=== PATIENT | female | born 1975 | race African-American/Black ===

== ENCOUNTER 2016-09-18 08:56 | Inpatient (IN) | payer OTHER ==
[2016-09-16 13:54] VITALS: BMI 27.9
[2016-09-18] MEDS ORDERED: ROPIVACAINE HCL 0.5% 30ML VIAL ONE (09:30)
[2016-09-18] MEDS ORDERED: MIDAZOLAM HCL 2 MG/2 ML SINGLE DOSE VIAL ONE (09:30)
[2016-09-18] MEDS ORDERED: DEXAMETHASONE SOD PHOSPHATE/PF 10 MG/ML SDV ONE (09:42)
[2016-09-18] MEDS ORDERED: METHYLENE BLUE 1% 10 MG/1 ML VIAL ONE (10:04)
[2016-09-18] MEDS ORDERED: LIDOCAINE HCL/PF 2% SDV 5ML VIAL ONE (10:43)
[2016-09-18] MEDS ORDERED: PROPOFOL 20 ML ONE (10:44)
[2016-09-18] MEDS ORDERED: HEPARIN NA (PORCINE) 5,000 UNITS/ML 1ML VIAL ONE (10:46)
[2016-09-18] MEDS ORDERED: ROCURONIUM BROMIDE 50 MG/5 ML VIAL ONE (10:47)
[2016-09-18] MEDS ORDERED: ONDANSETRON 4 MG/2 ML VIAL ONE (10:59)
[2016-09-18] MEDS ORDERED: ceFAZolin SODIUM 1 GM VIAL ONE (10:59)
[2016-09-18] MEDS ORDERED: DEXAMETHASONE SOD PHOSPHATE 4 MG/1 ML VIAL ONE (10:59)
[2016-09-18] MEDS ORDERED: VASOPRESSIN 20 UNITS/ML VIAL IV ONE (11:07)
[2016-09-18] MEDS ORDERED: HYDROmorphone *PCA* 10MG/50ML DISP.SYRIN PCA ONE (11:29)
[2016-09-18] MEDS ORDERED: HYDROmorphone HCL/PF 1 MG/ML VIAL (FOR PYXIS CHARGING ONLY) ONE (12:14)
[2016-09-18] MEDS ORDERED: NEOSTIGMINE METHYLSULFATE 0.5 MG/ML - 10 ML MDV ONE (13:47)
[2016-09-18] MEDS ORDERED: GUM MASTIC/STORAX/MSAL/ALCOHOL 1 DRP DROPSBTL MC ONE (14:01)
[2016-09-18] MEDS ORDERED: ONDANSETRON 4 MG/2 ML VIAL IVPUSH PRN ×3 (14:25→15:14)
[2016-09-18] MEDS ORDERED: LACTATED RINGERS SOLUTION 1,000 ML IV SCH ×2 (14:30→15:00)
[2016-09-18] MEDS: HYDROmorphone *PCA* 10MG/50ML DISP.SYRIN PCA SCH ×3 (15:05→17:24)
--- NOTE | 2016-09-18 15:19 | OP ---
DATE OF OPERATION: 09/18/2016 PREOPERATIVE DIAGNOSIS: Fibroid uterus. POSTOPERATIVE DIAGNOSIS: Fibroid uterus. SURGEON: Nestor Leal MD ROUND CUTTER OPERATOR: Siva, resident Dr. Pascal ANESTHESIA: General. COMPLICATIONS: None. FINDINGS: A [id number] bulky anteverted uterus with multiple fibroids palpable. Upon myomectomy, we were able to remove 9 fibroids ranging in size from 1 cm to 8 cm. BLOOD LOSS: 100 mL. COMPLICATIONS: None. DESCRIPTION OF PROCEDURE: The patient was taken to the operating room where general anesthesia was found to be adequate. She was placed in the dorsal lithotomy position, prepped and draped in normal sterile fashion. A Perez was inserted to drain her bladder. A pelvic exam revealed the above findings. A speculum was placed and a pediatric Perez was inserted into the uterine cavity, insufflated, and the uterine cavity was filled with methylene blue dye and then the Perez was clamped. Attention was then turned to the abdomen where a Pfannenstiel incision was made and carried down to the fascia. The fascia was incised in the midline and extended laterally on both sides. The muscle was then dissected off the fascia both inferiorly and superiorly. The muscle was in the midline and underlying peritoneum was tented up and entered. The peritoneal was extended superiorly and inferiorly. The uterus was free of adhesions. The bowel was packed away and the uterus was exteriorized. An incision was made anteriorly on the uterus in a vertical fashion until reaching the first fibroid, which was the largest of all removed. This was done using a Bovie. A sweetheart was used to grab the fibroid, and the Bovie was used to carefully dissect around the perimeter of the fibroid until we were able to remove it in its entirety. This process was repeated for the remaining 8 fibroids. Overall, there were 2 serosal incisions, 1 anterior and 1 anteroposterior, in order to remove the fibroids. Prior to the incision on the uterus, a tourniquet was placed in order to decrease the amount of bleeding and released 1 hour into the procedure for 1 full minute before reclamping. After removal of all the fibroids, the uterine incisions were closed deep to superficial using multiple 0 Vicryl [id number] sutures. The endometrial cavity was not entered during this procedure. A final layer of 2-0 Vicryl in a running locked fashion was used on the myometrium, after which 4-0 Vicryl was used to close the serosa in a baseball fashion. The uterus was then placed back into the abdomen after removing the tourniquet completely. There was excellent hemostasis noted. Interceed was placed atop both anterior and posterior incisions on the uterus to prevent future adhesions. The muscle was then closed in a single interrupted fashion using 2-0 Vicryl. The fascia was closed with 0 Vicryl in a running fashion, and the skin was closed with 4-0 Vicryl in a subcuticular fashion. All sponge, lap, and instrument counts were correct x2, and the patient was taken to recovery room in stable condition. Siva dictating for MD NESTOR Lamas M.D. [id number]
[2016-09-18] MEDS ORDERED: HYDROmorphone HCL CARPU-JECT 1 MG/1 ML DISP.SYRIN IVPUSH PRN (16:00)
[2016-09-18] MEDS: KETOROLAC TROMETHAMINE 15 MG/ML VIAL IVPUSH SCH (20:40)
[2016-09-19] MEDS: KETOROLAC TROMETHAMINE 15 MG/ML VIAL IVPUSH SCH ×2 (02:00→08:58)
[2016-09-19] MEDS ORDERED: LACTATED RINGERS SOLUTION 1,000 ML IV SCH (09:15)
--- NOTE | 2016-09-19 09:19 | PN ---
Progress Note (short form) - Note Progress Note: ANESTHESIOLOGY POST-OP CHECK 41F s/p abdominal myomectomy under general anesthesia, POD #1. No acute complaints, tolerating PO, ambulating, voiding. Denies N/V. Pain 7/10 and tolerable. Vital Signs Temperature 99.6 F 09/19/16 05:32 Pulse Rate 86 09/19/16 05:32 Respiratory Rate 18 09/19/16 05:32 Blood Pressure 114/58 09/19/16 05:32 O2 Sat by Pulse Oximetry (%) 99 09/19/16 05:32 Active Medications Lactated Ringer's (Lactated Ringers Solution) 1,000 mls @ 75 mls/hr IV ASDIR MARTIN Ibuprofen (Motrin -) 600 mg PO Q6H MARTIN Ketorolac Tromethamine (Toradol Injection -) 15 mg IVPUSH Q6H [facility] Stop: 09/19/16 09:30 Last Admin: 09/19/16 08:58 Dose: 15 mg Oxycodone/Acetaminophen (Percocet 5/325 -) 2 combo PO Q4H PRN PRN Reason: PAIN LEVEL 6-10 Stop: 09/24/16 09:06 Gen: Awake, alert No apparent anesthesia complications. Pain controlled. 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 Continue management as per primary team.
[2016-09-19 11:02] LABS: BASOPHIL 0.1 % (0-2.0); EOSINOPHIL 0.2 % (0-4.5); MCH 29.4 pg (25.7-33.7); MCHC 33.5 g/dl (32.0-36.0); MEAN CELL VOLUME 87.7 fl (80-96); MEAN PLT VOLUME 11.3 fl (7.5-11.1); NEUTROPHILS 76.8 % (42.8-82.8); PLATELET COUNT 156 K/MM3 (134-434); RDW 12.4 % (11.6-15.6); WHITE BLOOD COUNT 10.8 K/mm3 (4.0-10.8)
[2016-09-19 11:20] LABS: ANION GAP 6 (8-16); CALCIUM 8.1 mg/dl (8.4-10.2); CO2 25 mmol/L (22-28); CREATININE 0.6 mg/dl (0.6-1.3); GLUCOSE,RANDOM 105 mg/dl (74-106)
[2016-09-19] MEDS: IBUPROFEN 600 MG TABLET (FP) PO SCH ×2 (14:10→20:15)
[2016-09-19] MEDS: OXYCODONE/APAP 5/325MG COMBO TABLET PO PRN (22:12)
[2016-09-20] MEDS: IBUPROFEN 600 MG TABLET (FP) PO SCH ×2 (03:00→09:14)
[2016-09-20 06:06] VITALS: BP 116/59; PULSE 63; TEMP 98.4
[2016-09-20] MEDS: OXYCODONE/APAP 5/325MG COMBO TABLET PO PRN ×2 (06:56→13:07)
--- NOTE | 2016-09-20 07:50 | PN ---
Progress Note, Physician History of Present Illness: 41yo POD 2 from abd myomectomy doign well. No F/C/N/V Rajan diet, Voiding ad sofie without issues. (+) Flatus and pain well controlled on PO meds - Current Medication List Current Medications: Active Medications Lactated Ringer's (Lactated Ringers Solution) 1,000 mls @ 75 mls/hr IV ASDIR [facility] Last Admin: 09/19/16 09:30 Dose: 75 mls/hr Ibuprofen (Motrin -) 600 mg PO Q6H [facility] Last Admin: 09/20/16 03:00 Dose: Not Given Oxycodone/Acetaminophen (Percocet 5/325 -) 2 combo PO Q4H PRN PRN Reason: PAIN LEVEL 6-10 Stop: 09/24/16 09:06 Last Admin: 09/20/16 06:56 Dose: 2 combo - Objective Vital Signs: Vital Signs Temperature 98.4 F 09/20/16 06:04 Pulse Rate 63 09/20/16 06:04 Respiratory Rate 16 09/20/16 06:04 Blood Pressure 116/59 09/20/16 06:04 O2 Sat by Pulse Oximetry (%) 96 09/20/16 06:04 Constitutional: Yes: Well Nourished, No Distress, Calm Eyes: Yes: WNL HENT: Yes: WNL Neck: Yes: WNL Cardiovascular: Yes: WNL Respiratory: Yes: WNL Gastrointestinal: Yes: WNL, Normal Bowel Sounds, Soft ...Rectal Exam: Yes: Deferred Genitourinary: Yes: WNL Extremities: Yes: WNL Edema: No Peripheral Pulses WNL: Yes Wound/Incision: Yes: Clean/Dry, Well Approximated, Sutures Intact, Steri Strips Labs: CBC, BMP 09/19/16 10:47 09/19/16 10:47 Problem List - Problems (1) Fibroids Code(s): D25.9 - LEIOMYOMA OF UTERUS, UNSPECIFIED Qualifiers: Uterine leiomyoma location: intramural Qualified Code(s): D25.1 - Intramural leiomyoma of uterus Assessment/Plan 41yo POD 2 s/p Abd Myomectomy 1) Stable 2) Plan for D/C Home this afternoon 3) Pain - PO Motrin and percocet 4) Pelvic rest x 6 weeks discussed 5) F/U With Dr. Leal in 2 weeks D/W Dr. Leal -- Dr. Paniagua PGY 5
--- NOTE | 2016-09-24 15:39 | PATH ---
Surgical Pathology Report Patient Name: JAMES MARIA Med. Rec. #: [id number] /Age/Gender: 1975 (Age: 41) / F Account: [id number] Location: [facility] Taken: 09/18/2016 Received: 09/18/2016 Reported: 09/24/2016 Physicians: Nestor Leal M.D. Specimen(s) Received MULTIPLE MYOMAS Clinical History Uterine fibroids, history of prior abdominal myomectomy now with return of myomas Myomatous uterus Final Diagnosis MULTIPLE MYOMAS, MYOMECTOMY: LEIOMYOMATA (WEIGHT: 152 GRAMS). THE LARGEST LEIOMYOMA SHOWS DEGENERATIVE CHANGES. Electronically Signed Chanell Hernandez M.D. Gross Description Received in formalin labeled "multiple myomas," is a 152 g aggregate of 8 lilly, irregular nodules, consistent with fibroids. The fibroids range from 1.2-6.1 cm in greatest dimension. Sectioning reveals lilly, rubbery parenchyma with whirled architecture. The largest fibroid displays a single focus of hemorrhage. Card Hanger sections are submitted in 8 cassettes as follows: 9-1-[id number] smaller fibroids; 4-5-second largest fibroid; 6-8-largest fibroid. /09/19/201609/19/2016
== END 2016-09-20 14:00 | disposition home or self-care (01) | DRG 743 ==
LOC: FM/S 08:56
PROVIDERS: ADMIT Obstetrics & Gynecology Reproductive Endocrinology; ATTEND Obstetrics & Gynecology Reproductive Endocrinology
PROC: 0UB90ZZ Excision of Uterus, Open Approach (ICD-10-PCS; principal; 2016-09-17)
DX: D25.1 Intramural leiomyoma of uterus (principal)
CPT/HCPCS: 36415; 80048; 84703; 85025; 86850; 86900; 86901; 88305-TC; 94760; J1644